=== PATIENT | female | born 1990 | race Caucasian/White ===

== ENCOUNTER 2024-06-18 10:29 | Emergency (ER) | payer OTHER ==
[~2024-06-18] VITALS: Ht 172.7 cm; Wt 64.6 kg
[2024-06-18 14:29] VITALS: BP 139/82; TEMP 98.3; O2SAT 98
== END 2024-06-18 14:30 | disposition home or self-care (01) ==
LOC: EDBD 10:29 → M ED 10:29
DX: S13.4XXA Sprain of ligaments of cervical spine, initial encounter (principal); Y92.410 Unspecified street and highway as the place of occurrence of the external cause; Y93.9 Activity, unspecified; Y99.9 Unspecified external cause status; V49.40XA Driver injured in collision with unspecified motor vehicles in traffic accident, initial encounter